=== PATIENT | female | born 1985 | race Caucasian/White ===

== ENCOUNTER 2017-10-25 12:16 | Emergency (ER) | END 2017-10-25 14:59 | disposition home or self-care (01) ==

== ENCOUNTER 2018-01-12 18:34 | Emergency (ER) | END 2018-01-12 23:28 | disposition home or self-care (01) ==

== ENCOUNTER 2018-06-04 11:34 | Outpatient (CLI) | payer MEDICAID ==
[~2018-06-04] VITALS: Ht 157.5 cm; Wt 69.6 kg
[~2018-06-04 11:34] MED LIST: ACET500C5 PO; CALC-649; CEPH-443 PO; FERR27TA; PREN1TAB49
[2018-06-04 11:55] VITALS: BP 109/66; PULSE 76; RESP 18; Ht 157.5 cm; Wt 69.6 kg
--- NOTE | 2018-06-04 16:24 | TRIAGE ---
OB Triage Datetime Report Generated by CPN: 06/04/2018 16:24 Datetime: 06/04/2018 16:00 Stage of : OB Triage Maternal Assessment Level of Consciousness: Fully Conscious Labor Evaluation Frequency: 1-11 Monitor Mode: External Duration (sec)2399: 40-120 Quality: Mild Resting Tone [place]: Relaxed Heart Rate FHR Baseline Rate: 125 Monitor Mode: External US Variability: Moderate 6-25 bpm Accelerations: 15X15 Decelerations: None Category: Category I Pain Assessment Pain Scale: 0 Pain Goal: 3 Membrane Status: Intact Vaginal Bleeding: None Datetime: 06/04/2018 15:55 Bedside Blood Glucose: 76 Datetime: 06/04/2018 15:00 Stage of : OB Triage Maternal Assessment Level of Consciousness: Fully Conscious Labor Evaluation Frequency: 2-12 Monitor Mode: External Duration (sec)2399: 40-120 Quality: Mild Resting Tone [place]: Relaxed Heart Rate FHR Baseline Rate: 145 Monitor Mode: External US Variability: Moderate 6-25 bpm Accelerations: 15X15 Decelerations: None Category: Category I Pain Assessment Pain Scale: 0 Pain Goal: 3 Membrane Status: Intact Vaginal Bleeding: None Datetime: 06/04/2018 14:00 Stage of : OB Triage Maternal Assessment Level of Consciousness: Fully Conscious Labor Evaluation Frequency: 5UC/HR Monitor Mode: External Duration (sec)2399: 40-110 Quality: Mild Resting Tone [place]: Relaxed Heart Rate FHR Baseline Rate: 145 Monitor Mode: External US Variability: Moderate 6-25 bpm Accelerations: 15X15 Decelerations: None Pain Assessment Pain Scale: 0 Pain Goal: 3 Membrane Status: Intact Vaginal Bleeding: None Datetime: 06/04/2018 13:20 Vaginal Exam Dilatation (cms): 0.5 Effacement (%): 20 Station: -3 Exam By: PS Vaginal Bleeding: None Cervix, Consistency: Firm Cervix, Position: Posterior Presentation 'A': Cephalic Lie 'A': Longitudinal Datetime: 06/04/2018 13:00 Stage of : OB Triage Maternal Assessment Level of Consciousness: Fully Conscious Labor Evaluation Frequency: OCCASIONAL Monitor Mode: External Duration (sec)2399: 30-80 Quality: Mild Resting Tone [place]: Relaxed Heart Rate FHR Baseline Rate: 145 Monitor Mode: External US Variability: Moderate 6-25 bpm Accelerations: 15X15 Decelerations: None Category: Category I Pain Assessment Pain Scale: 0 Pain Goal: 3 Membrane Status: Intact Vaginal Bleeding: None Datetime: 06/04/2018 11:52 Assessment Type: Triage Maternal Assessment Level of Consciousness: Fully Conscious DTR's/Clonus: DTRs 2+; No Clonus Headache: Denies Blurred Vision: No Respiratory Effort: Unlabored; Regular Rhythm; Equal Expansion Breath Sounds, Left: Clear and Equal Breath Sounds, Right: Clear and Equal Nausea/Vomiting: Denies RUQ Epigastric Pain: Denies Lower Extremities Edema: None Degree: None Upper Extremities Edema: None Degree: None Facial Edema: None Fall Risk Assessment History of Falling: (0) No Secondary Diagnosis: (0) No Ambulatory Aid: (0) Bedrest/Nurse Assist IV Therapy: (0) No Gait: (0) Normal/Bedrest/Immobile Mental Status: (0) Oriented to Own Ability Fall Score: 0 Fall Risk Score Definition: No Risk: No action required Datetime: 06/04/2018 11:50 Time of Arrival: 06/04/2018 11:29 EGA: 38.4 Arrived By: Ambulatory Arrived From: Dr. Richard Chief Complaint: pt. sent from CLINIC FOR EVAL OF LABOR Movement: Present Contractions: Denies/Absent Rupture of Membranes: Denies Vaginal Bleeding: None Vaginal Discharge: Denies Recent Sexual Intercouse: Denies Abdominal Trauma: Not Applicable Patient Complaints: None Time Provider Notified: 06/04/2018 14:46 Provider Notified: LEIDY Initial Plan: BPP/SVE/NST Datetime: 06/04/2018 11:49 Monitor Mode: External Monitor Mode: External US
--- NOTE | 2018-06-04 16:44 | PN ---
Triage Information Date/Time 06/04/2018 Reason for visit: Abd/pelvic pain Weeks of Gestation 38 weeks and 4 days /Para 5 para 3 Diabetes: none Hypertention: none Additional information 33-year-old with IUP at 38 weeks and [address] days and care with Dr[address] Hutchison presented with complaint of contractions. Antepartum course was comp licated by history of frequent UTIs status post treatment as well as abnormal glucose tolerance test. She had normal GDM screening test. Her AC was noted to be more than 90 percentile in ultrasound for growth scan and was recommended delivery at 39 weeks by induction by perinatologist. Patient denies any urinary symptoms. Denies any leaking of fluid, vaginal bleeding or decreased movement. Her random blood sugar is within normal limits. Objective Vital Signs Date Temp Pulse Resp B/P (MAP) Pulse Ox O2 O2 Flow FiO2 Time Delivery Rate 06/04/18 98.5 76 18 109/66 Room Air 11:55 (80) Heart Rate: 130's Heart Rate Comments Category 1 and reassuring Results/Medications Results 24 hrs Laboratory Tests Test 06/04/18 11:40 06/04/18 15:54 Urine Color YELLOW Urine Clarity CLOUDY A Urine pH 6.0 Urine Specific [place] 1.017 Urine Ketones NEGATIVE Urine Nitrite NEGATIVE Urine Bilirubin NEGATIVE Urine Urobilinogen NEGATIVE Urine Leukocyte Esterase 1+ H Urine Microscopic RBC 3 Urine Microscopic WBC 2 Urine Squamous Epithelial Cells MANY A Urine Bacteria FEW A Urine Mucus FEW A Urine Hemoglobin NEGATIVE Urine Glucose NEGATIVE Urine Total Protein NEGATIVE Bedside Glucose 76 Imaging Results PROCEDURE: US OB biophysical profile. CLINICAL INDICATION: decreased movements, contractions TECHNIQUE: Multiple sonographic images of the pelvis were obtained. The imag es were reviewed on a PACS workstation. COMPARISON: No prior studies are available for comparison. FINDINGS: There is a single live intrauterine gestation. Cardiac activity is present with 142 beats per minute. There is a vertex presentation. The placenta is posterior. There is no evidence of placental abruption. There is a borderline normal amount of amniotic fluid with an DORI = 20 cm. Biophysical profile: movement 2/2 tone 2/2. breathing 2/2 DORI 2/2 Total 88 RPTAT: AA . IMPRESSION: Normal biophysical profile. Borderline increased DORI. . Disposition: Discharge Assessment/Plan IUP at 38 weeks and 4 days Accelerated growth No GDM Recommended by perinatologist delivery at 39 weeks testing reassuring Patient was a scheduled for induction at 39 weeks Patient will be contacting her OB office within 48 hours after discharge from the hospital to discuss about plan of care or any other follow-up if necessary Strict labor precautions kick count discussed with patient All questions were answered to patient's best satisfaction Patient verbalized understanding plan of care. KRISTAL IRBY MD Jun 04, 2018 16:44
== END 2018-06-04 16:35 | disposition home or self-care (01) ==
LOC: OBT 11:34 → L-D 11:34 → OBT 16:35
PROVIDERS: ATTEND Obstetrics & Gynecology
DX: O26.893 Other specified pregnancy related conditions, third trimester (principal); R10.2 Pelvic and perineal pain; O36.63X0 Maternal care for excessive fetal growth, third trimester, not applicable or unspecified; O62.9 Abnormality of forces of labor, unspecified; Z3A.38 38 weeks gestation of pregnancy; Z87.440 Personal history of urinary (tract) infections
CPT/HCPCS: 76818; 81001; 82962; Z7500; G0463

== ENCOUNTER 2018-06-07 07:55 | Inpatient (IN) | payer MEDICAID ==
[~2018-06-07] VITALS: Ht 157.5 cm; Wt 70.0 kg
[~2018-06-07 07:55] MED LIST changes: -ACET500C5 PO; -CEPH-443 PO
[2018-06-07] MEDS ORDERED: LACTATED RINGER'S 1,000 ML IV PRN (08:10)
[2018-06-07] MEDS ORDERED: MISOPROSTOL 200 MCG TAB PR PRN (08:30)
[2018-06-07] MEDS ORDERED: METHYLERGONOVINE 0.2 MG INJ IM PRN (08:30)
[2018-06-07] MEDS ORDERED: OXYTOCIN 30 UNITS/LR 500 ML IV PRN (08:30)
[2018-06-07] MEDS ORDERED: OXYTOCIN 30 UNITS/LR 500 ML IV SCH ×3 (08:30→10:00)
[2018-06-07] MEDS ORDERED: IBUPROFEN 600 MG TAB PO PRN (08:30)
[2018-06-07] MEDS ORDERED: BUTORPHANOL 2 MG INJ IV PRN (08:30)
[2018-06-07] MEDS ORDERED: LIDOCAINE 1% (MPF) 30 ML INJ INJ PRN (08:30)
[2018-06-07] MEDS ORDERED: MINERAL OIL LIGHT 10 ML VIAL TOP PRN (08:30)
[2018-06-07] MEDS ORDERED: CARBOPROST 250 MCG INJ IM PRN (08:30)
[2018-06-07] MEDS ORDERED: MISOPROSTOL 50 MCG CAPSULE VAG ONE (10:00)
[2018-06-07] MEDS ORDERED: MISOPROSTOL 50 MCG CAPSULE PO SCH (10:30)
[2018-06-07] MEDS: LACTATED RINGER'S 1,000 ML IV SCH ×4 (11:26→21:19)
--- NOTE | 2018-06-07 12:31 | HP ---
Date/Time of Note Date/Time of Note DATE: 06/07/18 TIME: 12:29 OB - History Hx of Present Free Text/Dictation 33-year-old female 5 para 3 at 39 weeks gestation admitted for induction of labor per perinatologist recommendation Last Menstrual Period: September 07, 2017 Estimated Due Date: Jun 14, 2018 : 5 Para: 3 Spontaneous : 1 Care: Good Care Past Family/Social History * Past Medical, Surgical, Family and Obstetric Histories reviewed from chart. Blood Type: B+ Rubella: immune RPR/VDRL: Negative GBS Status: Negative HBsAG: Negative OB Admission Exam Physical Exam HEENT: WNL Heart: Rhythm Normal Lungs: Clear, Equal Abdomen: WNL Extremities: Normal Reflexes: Normal Cervical Dilatation: None Effacement: 0% Station: -3 Membranes: Intact Heart Rate: 140's Accelerations: Accelerations Present Decelerations: No Decelerations Varibility: Marked Contractions on Admission: None Last 72 hours Lab Results CBC & BMP 06/07/18 08:30 OB Assessment/Plan Other Assessment: 39+ weeks gestation Admitted for induction of labor Other plan: Induce labor using Cytotec MIKAL MARIEE MD Jun 07, 2018 12:31
[2018-06-07 12:47] VITALS: BP 103/70; PULSE 68; RESP 18; Ht 157.5 cm; Wt 70.0 kg
--- NOTE | 2018-06-07 13:36 | PREAC ---
Date/Time of Note Date/Time of Note DATE: 06/07/18 TIME: 13:34 Anesthesia Eval and Record Evaluation Time Pre-Procedure Interview DATE: 06/07/18 TIME: 13:34 Age 33 Sex female NPO: 8 hrs Preoperative diagnosis labor pain Planned procedure epidural Past Medical History Past Medical History: Includes : Gestational age: (38) Surgery & Anesthesia Issues No known issue Meds Anticoagulation: No Beta Serena within 24 hr: No Reason Beta Serena not given: Pt. not on B-Serena Reported Medications Vits W-Ca,Fe,Fa(<1MG) () 1 Tab Tablet 09/14/10 Calcium Carbonate (Calcium) 1 Tab Tablet 09/14/10 Ferrous Sulfate (Iron) 1 Tab Tablet 09/14/10 Discontinued Scripts Acetaminophen* (Tylophen*) 500 Mg Capsule, 1 CAP PO Q6H PRN for PAIN AND OR ELEVATED TEMP, #20 CAP Prov:DALTON COLLINS NP 01/12/18 Cephalexin* (Keflex*) 500 Mg Capsule, 500 MG PO QID for 10 Days, CAP Prov:DALTON COLLINS NP 01/12/18 Cephalexin* (Keflex*) 500 Mg Capsule, 500 MG PO QID for 5 Days, CAP Prov:SAMSON DANG MD 10/25/17 Acetaminophen* (Tylophen*) 500 Mg Capsule, 1 CAP PO Q6H PRN for PAIN AND OR ELEVATED TEMP, #15 CAP Prov:SAMSON DANG MD 10/25/17 Current Medications Lactated Ringer's 1,000 ml @ 125 mls/hr Q8H IV Last administered on 06/07/18at 11:26; Admin Dose 125 MLS/HR; Start 06/07/18 at 08:10 Butorphanol Tartrate (Stadol) 2 mg Q2H PRN IV .PAIN; Start 06/07/18 at 08:30 Lidocaine (Xylocaine 1% (Mpf)) 30 ml ONCE PRN INJ .EPISIOTOMY; Start 06/07/18 at 08:30 Oxytocin/Lactated Ringer's 500 ml @ 500 mls/hr ONCE POST IV ; Start 06/07/18 at 08:30 Oxytocin/Lactated Ringer's 500 ml @ 125 mls/hr POST IV ; Start 06/07/18 at 08:30 Ibuprofen (Motrin) 600 mg ONCE PRN PO .PAIN 1-5; Start 06/07/18 at 08:30 Lactated Ringer's 1,000 ml @ 2,000 mls/hr Q30M PRN IV .ANESTHESIA; Start 06/07/18 at 08:10 Oxytocin/Lactated Ringer's 500 ml @ 0 mls/hr ONCE PRN IV .VAGINAL BLEEDING; Start 06/07/18 at 08:30 Methylergonovine Maleate (Methergine) 0.2 mg ONCE PRN IM .VAGINAL BLEEDING; Start 06/07/18 at 08:30 Carboprost Tromethamine (Hemabate) 250 mcg ONCE PRN IM .VAGINAL BLEEDING; Start 06/07/18 at 08:30 Misoprostol (Cytotec) 1,000 mcg ONCE PRN DE .VAGINAL BLEEDING; Start 06/07/18 at 08:30 Mineral Oil (Muri-Lube) 10 ml PRN PRN TOP NOTE; Start 06/07/18 at 08:30 Oxytocin/Lactated Ringer's 500 ml @ 0 mls/hr FOR INDUCTION IV ; Start 06/07/18 at 10:00 Misoprostol (Cytotec 50 Mcg Capsule) 50 mcg ONCE PO Last administered on 06/07/18at 11:29; Admin Dose 50 MCG; Start 06/07/18 at 10:30; Stop 06/08/18 at 10:29 Meds reviewed: Yes Allergies Coded Allergies: No Known Drug Allergies (Verified Allergy, Mild, 08/19/12) Allergies Reviewed: Yes Labs/Studies Labs Reviewed: Reviewed by anesthesiologist Result Diagram: 06/07/1830 Laboratory Tests 06/07/18 08:30 Blood Bank Test 06/07/18 08:30 Blood Type B POSITIVE Rh Immune Globulin Candidate NO test: Positive Studies: ECG (n/a), CXR (n/a) Pre-procedure Exam Last vitals Vital Signs Date Temp Pulse Resp B/P (MAP) Pulse Ox O2 O2 Flow FiO2 Time Delivery Rate 06/07/18 98.1 68 18 103/70 98 Room Air 12:47 (81) Airway: Adequate mouth opening Mallampati: Mallampati I Teeth: Normal Lung: Normal Heart: Normal ASA Physical Status ASA physical status: 2 Emergency: None Planned Anesthetic Neuraxial: Epidural Pre-operative Attestations Prior to commencing anesthesia and surgery, the patient was re-evaluated, there was verification of: *The patient's identity *The results of appropriate recent lab work and preoperative vital signs *The above evaluation not changing prior to induction *Anesthetic plan, risk benefits, alternative and complications discussed with patient/family; questions answered; patient/family understands, accepts and wishes to proceed. IAN AGUIRRE MD Jun 07, 2018 13:35
[2018-06-07] MEDS ORDERED: FENTAnyl 2MCG/ML-ROPIV 0.2% 100 ML ONE (13:53)
--- NOTE | 2018-06-07 13:57 | PAC ---
Date/Time of Note Date/Time of Note DATE: 06/07/18 TIME: 13:56 Post-Anesthesia Notes Post-Anesthesia Note Last documented vital signs Vital Signs Date Temp Pulse Resp B/P (MAP) Pulse Ox O2 O2 Flow FiO2 Time Delivery Rate 06/07/18 98.1 68 18 103/70 98 Room Air 12:47 (81) Bp 110/59/ HR 66/ Sat 99%, RR 18/ Temp 98 Activity: WNL Respiratory function: WNL Cardiovascular function: WNL Mental status: Baseline Pain reasonably controlled: Yes Hydration appropriate: Yes Nausea/Vomiting absent: No IAN AGUIRRE MD Jun 07, 2018 13:57
[2018-06-07] MEDS ORDERED: NALOXONE (0.4 MG/ML) INJ IV PRN (14:00)
[2018-06-07] MEDS: ONDANSETRON 4 MG INJ IV PRN (18:18)
[2018-06-07] MEDS: FENTAnyl 2MCG/ML-ROPIV 0.2% 100 ML BAG EPI SCH (22:38)
[2018-06-08] MEDS: ONDANSETRON 4 MG INJ IV PRN ×2 (00:49→07:29)
[2018-06-08] MEDS ORDERED: OXYTOCIN 30 UNITS/LR 500 ML IV SCH (02:30)
[2018-06-08] MEDS: LACTATED RINGER'S 1,000 ML IV SCH ×4 (02:50→16:43)
[2018-06-08] MEDS ORDERED: EPHEDrine SULFATE 50 MG/5 ML SYG ONE (06:17)
[2018-06-08] MEDS ORDERED: EPHEDrine SULFATE 50 MG/5 ML SYG IV PRN (06:30)
[2018-06-08] MEDS: FENTAnyl 2MCG/ML-ROPIV 0.2% 100 ML BAG EPI SCH ×2 (09:17→16:47)
--- NOTE | 2018-06-08 17:39 | LDN ---
Date/Time of Note Date/Time of Note DATE: 06/08/18 TIME: 17:37 Delivery Summary Normal spontaneous vaginal delivery of a viable over midline episiotomy Weeks of Gestation 39 weeks plus Placenta Delivered: Spontaneously, Intact & Complete Meconium: none Episiotomy: Yes Indication for episiotomy Bradycardic Perineal laceration: 0 Laceration repair: 2 times small vaginal lacerations on either side of the vagina were closed using running stitches of 2-0 Vicryl Episiotomy was then repaired in layers using 2-0 Vicryl in deeper layers and 2-0 chromic and superficial layer Anesthesia type: Epidural Estimated blood loss: 200 Sponge & Needle done & correct: Yes All needle counts correct: Yes Any foreign bodies felt in the: No Infant Delivery Information Sex Sex: male Apgars 1 Minute: 9 5 Minute: 9 Suctioning Nose & mouth suctioned at shirley: Yes Delee suction performed: No Umbilical Cord Umbilical cord with: 3 Vessels Cord presentations: no nuchal cord Cord Blood was obtained: Yes Mother & Baby Disposition Disposition Mom & Baby to Maternity; Good: Yes (Mother and baby were recovered in good condition) Mom transferred to: Other Baby to NICU: No MIKAL MARIEE MD Jun 08, 2018 17:39
[2018-06-08] MEDS ORDERED: KETOROLAC 30 MG INJ IV STA (17:40)
[2018-06-08] MEDS: LACTATED RINGER'S 1,000 ML IV* SCH (18:28)
[2018-06-08] MEDS ORDERED: BENZOCAINE 20% 56 ML SPRAY TOP PRN (18:30)
[2018-06-08] MEDS ORDERED: LANOLIN HPA 1 PKT TOP PRN (18:30)
[2018-06-08] MEDS ORDERED: HYDROCODONE/APAP (5/325) TAB PO PRN ×2 (18:30)
[2018-06-08] MEDS ORDERED: CARBOPROST 250 MCG INJ IM PRN (18:30)
[2018-06-08] MEDS ORDERED: METHYLERGONOVINE 0.2 MG INJ IM PRN (18:30)
[2018-06-08] MEDS ORDERED: DIBUCAINE 1% 30 GM OINT TOP PRN (18:30)
[2018-06-08] MEDS ORDERED: OXYTOCIN 30 UNITS/LR 500 ML IV PRN (18:30)
[2018-06-08] MEDS ORDERED: ZOLPIDEM 5 MG TAB PO PRN (18:30)
[2018-06-08] MEDS ORDERED: MISOPROSTOL 200 MCG TAB PR PRN (18:30)
[2018-06-08] MEDS: WITCH HAZEL/GLYCERIN PAD PR PRN (18:44)
[2018-06-08] MEDS: CEPHALEXIN 500 MG CAP PO SCH ×2 (18:45→23:40)
[2018-06-08] MEDS: IBUPROFEN 600 MG TAB PO SCH ×2 (18:45→23:51)
[2018-06-08 18:56] VITALS: BP 122/74; PULSE 50; RESP 18
[2018-06-08 20:00] VITALS: BP 109/56; PULSE 60; RESP 19
[2018-06-08] MEDS: MAGNESIUM HYDROXIDE 30ML CUP PO SCH (21:45)
[2018-06-08] MEDS: SENNA/DOCUSATE NA (8.6MG/50MG) TAB PO SCH (21:45)
[2018-06-08] MEDS: ESTROGENS CONJUGATED 42.5 GM VAG CR VAG SCH (21:46)
[2018-06-09] VITALS: BP 94/53; PULSE 54; RESP 18
[2018-06-09] MEDS: LACTATED RINGER'S 1,000 ML IV* SCH (02:27)
[2018-06-09] MEDS: WITCH HAZEL/GLYCERIN PAD PR PRN (02:40)
[2018-06-09 04:00] VITALS: BP 91/54; PULSE 57; RESP 16
[2018-06-09] MEDS: CEPHALEXIN 500 MG CAP PO SCH ×4 (06:00→23:34)
[2018-06-09] MEDS: IBUPROFEN 600 MG TAB PO SCH ×4 (06:01→23:34)
--- NOTE | 2018-06-09 06:50 | DS ---
Date/Time of Note Date/Time of Note Home today or next day DATE: 06/09/18 TIME: 06:49 Obstetrical Discharge Record Final Diagnosis Final Diagnosis: Term delivered Other Final Diagnosis Status post vaginal delivery Vaginal Delivery Obstetrical Delivery: Spontaneous, Episiotomy, Repaired, Laceration, Repaired Complications Augmentation: Yes Induction: Yes Condition on Discharge Physical Assessment Last Vitals: See nurse's notes Voiding: Yes Bowel Movement: Yes Breast: Soft, non-tender, Filling Fundus: Firm Abdomen and Incision: Abdomen is soft with present bowel sounds Fundus is firm at the U Episiotomy: Episiotomy appears to be healing well and perineum is clean Calf Tenderness: No Patient Condition: Good MIKAL MARIEE MD Jun 09, 2018 06:50
[2018-06-09] MEDS ORDERED: IBUP-1542 PO (06:52)
--- NOTE | 2018-06-09 06:52 | PD.PPDC ---
DAIRY NUTRITIONIST Discharge Instruction Provider Information Physician Information 33-year-old female had vaginal delivery Diagnosis [id number] Final Diagnosis: [id number] Status post vaginal delivery Condition [id number] Patient Condition: [id number] Good Diet [id number] Diet: Shkng9p Resume Regular Diet Activity/Restrictions [id number] Activity: [id number] Normal Activity May Shower [id number] Restrictions: [id number] Nothing in the Vagina [id number] Return to Work or School: [id number] Jun 22, 2018 Follow-up Follow-up with Physician: 2, Week/Weeks (In clinic) Return to clinic for [id number] OB Instructions: [id number] Breast Tenderness Depression Comment: Pelvic rest for 6 weeks MIKAL MARIEE MD Jun 09, 2018 06:52
[2018-06-09 08:30] VITALS: BP 103/57; PULSE 68; RESP 18
[2018-06-09] MEDS: SENNA/DOCUSATE NA (8.6MG/50MG) TAB PO SCH ×2 (10:03→20:57)
[2018-06-09] MEDS: ESTROGENS CONJUGATED 42.5 GM VAG CR VAG SCH ×2 (10:03→20:57)
[2018-06-09] MEDS: MAGNESIUM HYDROXIDE 30ML CUP PO SCH ×2 (10:03→20:57)
[2018-06-09 12:01] VITALS: BP 98/55; PULSE 78; RESP 18
[2018-06-09 15:58] VITALS: BP 107/52; PULSE 62
[2018-06-09 20:00] VITALS: BP 103/62; PULSE 64; RESP 19
[2018-06-10 04:20] VITALS: BP 110/72; PULSE 64; RESP 20
[2018-06-10] MEDS: IBUPROFEN 600 MG TAB PO SCH ×2 (05:37→12:37)
[2018-06-10] MEDS: CEPHALEXIN 500 MG CAP PO SCH ×2 (05:37→12:38)
[2018-06-10 07:55] VITALS: BP 102/55; PULSE 55; RESP 16
[2018-06-10] MEDS ORDERED: VARICELLA VACCINE LIVE/PF 1,350 UNIT/0.5 ML ML SC* ONE (09:00)
[2018-06-10] MEDS ORDERED: MEASLES,MUMPS,RUBELLA VACCINE INJ SC* ONE (09:00)
[2018-06-10] MEDS: MAGNESIUM HYDROXIDE 30ML CUP PO SCH (09:00)
[2018-06-10] MEDS ORDERED: DIPHTH/TET/ACEL PERTUSS (ADULT) 0.5 ML VIAL IM* ONE (09:00)
[2018-06-10] MEDS: SENNA/DOCUSATE NA (8.6MG/50MG) TAB PO SCH (09:54)
[2018-06-10] MEDS: ESTROGENS CONJUGATED 42.5 GM VAG CR VAG SCH (09:55)
[2018-06-10 15:21] VITALS: BP 121/70; PULSE 59; RESP 18
== END 2018-06-10 14:30 | disposition home or self-care (01) | DRG 807 ==
LOC: L-D 07:55 → PP1 06-08 18:34
PROVIDERS: ADMIT Obstetrics & Gynecology; ATTEND Obstetrics & Gynecology
PROC: 10E0XZZ Delivery of Products of Conception, External Approach (ICD-10-PCS; principal; 2018-06-08)
PROC: 0W8NXZZ Division of Female Perineum, External Approach (ICD-10-PCS; 2018-06-08)
PROC: 0HQ9XZZ Repair Perineum Skin, External Approach (ICD-10-PCS; 2018-06-08)
DX: O76 Abnormality in fetal heart rate and rhythm complicating labor and delivery (principal); O70.0 First degree perineal laceration during delivery; Z37.0 Single live birth; Z3A.39 39 weeks gestation of pregnancy
CPT/HCPCS: 62319; 76815; 85025; 85610; 85730; 86592; 86900; 86901; 87340; 90716; J2405; J2590; J3010; J7120